=== PATIENT | male | born 1995 | race African-American/Black ===

== ENCOUNTER 2020-09-25 12:20 | Emergency (ER) | payer SELFPAY ==
[~2020-09-25] VITALS: Ht 182.9 cm; Wt 115.0 kg
[2020-09-25 14:01] VITALS: BP 149/74
--- NOTE | 2020-09-25 14:53 | PHYS DOC ---
Past Medical History Past Medical History: No Pertinent History (LORRIE KURTZ CLOTH WASHER OPERATOR) Past Surgical History: Other Additional Past Surgical Histo: Left knee surgery (LORRIE KURTZ CLOTH WASHER OPERATOR) Smoking Status: Never Smoker Alcohol Use: None Drug Use: None (LORRIE KURTZ APRN) General Adult EDM: Chief Complaint: EARACHE/EAR PAIN HPI: HPI: Patient is a 24 year old male who presents with right ear and side of head pain with some right eye vision blurriness for the last week. He states 4 days ago he went to research with same symptoms and they told him the use of Flonase and ibuprofen. He states he thinks he has had a fever off and on but has not taken it. Patient currently rates his discomfort at a throbbing 8 out of 10. Patient denies any past medical history. (LORRIE KURTZ CLOTH WASHER OPERATOR) Review of Systems: Review of Systems: Constitutional: Denies fever or chills. [] Eyes: Denies change in visual acuity. + Right eye blurriness [] HENT: Denies nasal congestion or sore throat. + Right ear pain [] Respiratory: Denies cough or shortness of breath. [] Cardiovascular: Denies chest pain or edema. [] GI: Denies abdominal pain, nausea, vomiting, bloody stools or diarrhea. [] : Denies dysuria. [] Musculoskeletal: Denies back pain or joint pain. [] Integument: Denies rash. [] Neurologic: + headache, denies focal weakness or sensory changes. [] Endocrine: Denies polyuria or polydipsia. [] Lymphatic: Denies swollen glands. [] Psychiatric: Denies depression or anxiety. [] (LORRIE KURTZ CLOTH WASHER OPERATOR) Heart Score: C/O Chest Pain: No Risk Factors: Risk Factors: DM, Current or recent (<one month) smoker, HTN, HLP, family history of CAD, obesity. Risk Scores: Score 0 - 3: 2.5% MACE over next 6 weeks - Discharge Home Score 4 - 6: 20.3% MACE over next 6 weeks - Admit for Clinical Observation Score 7 - 10: 72.7% MACE over next 6 weeks - Early Invasive Strategies (LORRIE KURTZ CLOTH WASHER OPERATOR) Allergies: Allergies: Allergies Coded Allergies Type Severity Reaction Last Updated Verified No Known Drug Allergies 01/09/14 No (LORRIE KURTZ APRN) Physical Exam: PE: Constitutional: Well developed, well nourished, no acute distress, non-toxic appearance. [] HENT: Normocephalic, atraumatic, bilateral external ears normal, oropharynx moist, no oral exudates, nose normal. Ear canal is swollen and seems to be tender with examination. Tympanic looks to be intact from what I can see. Tenderness behind the right ear [] Eyes: PERRLA, EOMI, conjunctiva normal, no discharge. [] Neck: Normal range of motion, no tenderness, supple, no stridor. [] Cardiovascular:Heart rate regular rhythm, no murmur [] Lungs & Thorax: Bilateral breath sounds clear to auscultation [] Abdomen: Bowel sounds normal, soft, no tenderness, no masses, no pulsatile masses. [] Skin: Warm, dry, no erythema, no rash. [] Back: No tenderness, no CVA tenderness. [] Extremities: No tenderness, no cyanosis, no clubbing, ROM intact, no edema. [] Neurologic: Alert and oriented X 3, normal motor function, normal sensory function, no focal deficits noted. [] Psychologic: Affect normal, judgement normal, mood normal. [] (LORRIE KURTZ APRN) Current Patient Data: Vital Signs: Vital Signs Date Time Temp Pulse Resp B/P (MAP) Pulse Ox O2 Delivery O2 Flow Rate FiO2 09/25/20 14:01 98.9 61 20 149/74 (99) 98 Room Air 98.9 (LORRIE KURTZ APRN) EKG: EKG: [] (LORRIE KURTZ APRN) Radiology/Procedures: Radiology/Procedures: [] Impression: [facility] [address] [place] [address] IMAGING REPORT Signed PATIENT: MESHA ROWAN ACCOUNT: [id number] : 1995 LOCATION: ER AGE: 24 SEX: M EXAM STATUS: REG ER ORD. PHYSICIAN: LORRIE KURTZ APRN REASON: ear pain with tenderness behind the ear PROCEDURE: CT HEAD WO CONTRAST EXAM: Head CT without contrast. HISTORY: Ear pain. TECHNIQUE: Computed tomographic images of the head were obtained without contrast. *One or more of the following individualized dose reduction techniques were utilized for this examination: 1. Automated exposure control. 2. Adjustment of the mA and/or kV according to patient size. 3. Use of iterative reconstruction technique. COMPARISON: None. FINDINGS: There is no acute or subacute extra-axial or intraparenchymal hemorrhage. There is no mass effect or midline shift. There is no hydrocephalus. The stokes-white matter differentiation pattern is intact. The visualized portions of the orbits, paranasal sinuses and mastoid air cells are unremarkable. No suspicious calvarial lesion is seen. IMPRESSION: No acute intracranial findings. Electronically signed by: Nanette Acevedo MD (09/25/2020 3:04 PM) [id number] DICTATED and SIGNED BY: NANETTE ACEVEDO MD DATE: 09/25/20 [id number] (LORRIE KURTZ APRN) Course & Med Decision Making: Course & Med Decision Making Pertinent Labs and Imaging studies reviewed. (See chart for details) See HPI. Ambulatory with a steady gait. Speaks in full clear sentences. PERRLA. Alert and oriented x4. No nasal congestion. Tenderness behind the right ear. CT of the head will be done to rule out mastoiditis. Afebrile vital signs are within normal limits. Patient denies chest pain, cough, nasal congestion, sore throat, loss of consciousness, dizziness, nausea, vomiting, abdominal pain, diarrhea, loss of vision. Denies this being the worst headache of his life. CT shows no acute findings. Because the ear is so tender with examination, swelling of your canal I will start him on antibiotic eardrops. Mother to give him Compazine and hydrocodone to help with the headache pain. This could also be a possible migraine type of headache. It Is hard to visualize the tympanic membrane due to the swelling. [] (LORRIE KURTZ APRN) Dragon Disclaimer: Dragon Disclaimer: This electronic medical record was generated, in whole or in part, using a voice recognition dictation system. (LORRIE KURTZ APRN) Departure Departure Impression: Primary Impression: Ear pain, right Additional Impression: Headache Qualified Codes: R51.9 - Headache, unspecified Disposition: HOME / SELF CARE / HOMELESS Condition: STABLE Referrals: NO PCP (PCP) Patient Instructions: General Headache Without Cause, Otitis Externa Additional Instructions: Follow up with primary care provider. Take medications as prescribed and with food. Use eardrops as prescribed. When you are in the shower try not to let any water go into the ear canal by placing a cotton ball. Scripts Hydrocodone Bit/Acetaminophen (HYDROCODONE-APAP 5-325 ) 1 Tab Tablet 1 TAB PO PRN Q6HRS PRN for PAIN, #10 TAB 0 Refills Prov: LORRIE KURTZ APRN 09/25/20 Neomycin/Polymyxin B Sulf/Hc (YAVLIYVO-[id number]-BG EAR SUSP) 10 Ml Drops.susp 4 DROP RIGHT EAR TID for 5 Days, #10 ML 0 Refills Prov: LORRIE KURTZ APRN 09/25/20 Attending Signature Attending Signature I have participated in the care of this patient and I have reviewed and agree with all pertinent clinical information above including history, exam, and re commendations. ([facility] MD) LORRIE KURTZ APRN Sep 25, 2020 14:53 [facility] MD Sep 26, 2020 07:27
--- NOTE | 2020-09-25 15:07 | RAD ---
EXAM: Head CT without contrast. HISTORY: Ear pain. TECHNIQUE: Computed tomographic images of the head were obtained without contrast. *One or more of the following individualized dose reduction techniques were utilized for this examina tion: 1. Automated exposure control. 2. Adjustment of the mA and/or kV according to patient size. 3. Use of iterative reconstruction technique. COMPARISON: None. FINDINGS: There is no acute or subacute extra-axial or intraparenchymal hemorrhage. There is no mass effect or midline shift. There is no hydrocephalus. The stokes-white matter differentiation pattern is intact. The visualized portions of the orbits, paranasal sinuses and mastoid air cells are unremarkable. No s uspicious calvarial lesion is seen. IMPRESSION: No acute intracranial findings. Electronically signed by: Nanette Crabtree MD (09/25/2020 3:04 PM) [id number]
[2020-09-25] MEDS ORDERED: NEOM10DR32 RIGHT EAR (15:19)
[2020-09-25] MEDS ORDERED: HYDR-2761 PO (15:19)
[2020-09-25] MEDS ORDERED: HYDROcodone/APAP 5/325MG 1 TAB TABLET PO ONE (15:45)
[2020-09-25] MEDS ORDERED: PROCHLORPERAZINE 10 MG/2 ML VIAL. IM ONE (15:45)
== END 2020-09-25 15:46 | disposition home or self-care (01) ==
LOC: ER 12:20
DX: H92.01 Otalgia, right ear (principal); R51.9 Headache, unspecified; H53.8 Other visual disturbances
CPT/HCPCS: 70450; 99284-25